=== PATIENT | female | born 1995 | race Caucasian/White ===

== ENCOUNTER 2019-03-09 10:16 | Emergency (ER) | payer BC ==
[~2019-03-09] VITALS: Ht 162.6 cm; Wt 46.3 kg
[2019-03-09] MEDS ORDERED: TDAP [DIPH/PERTUSSIS/TET] 0.5 ML VIAL IM ONE ×2 (11:00→11:10)
--- NOTE | 2019-03-09 11:00 | NUR ---
PT CAME INTO THE ED C/O L HAND LACERATION WHILE SLICING AN AVOCADO. PT AAOX4, VSS, BREATHING EVEN AND UNLABORED ON ROOM AIR W/ NAD NOTED. PT CONNECTED TO THE MONITOR AND POX.
--- NOTE | 2019-03-09 11:18 | NUR ---
XRAY AT BEDSIDE
[2019-03-09] MEDS ORDERED: LIDOCAINE /MPF 1% VIAL 5 ML VIAL ONE (11:26)
--- NOTE | 2019-03-09 12:20 | NUR ---
Patient discharged to home in stable condition. Written and verbal after care instructions given. Patient verbalizes understanding of instruction.
[2019-03-09 12:26] VITALS: BP 127/84
== END 2019-03-09 12:26 | disposition home or self-care (01) ==
LOC: ER 10:21
DX: S61.215A Laceration without foreign body of left ring finger without damage to nail, initial encounter (principal); W26.8XXA Contact with other sharp object(s), not elsewhere classified, initial encounter; Y93.89 Activity, other specified; Y92.89 Other specified places as the place of occurrence of the external cause; Y99.8 Other external cause status
CPT/HCPCS: 12001; 73130; 90471; 90715; 99283; A6403; J3490

== ENCOUNTER 2019-03-11 08:04 | Emergency (ER) | payer BC ==
[~2019-03-11] VITALS: Ht 162.6 cm; Wt 46.3 kg
[2019-03-11 08:13] VITALS: BP 106/72
--- NOTE | 2019-03-11 08:47 | NUR ---
Patient discharged to home in stable condition. Written and verbal after care instructions given. Patient verbalizes understanding of instruction.
== END 2019-03-11 08:47 | disposition home or self-care (01) ==
LOC: ER 08:09
DX: S61.215D Laceration without foreign body of left ring finger without damage to nail, subsequent encounter (principal); X58.XXXD Exposure to other specified factors, subsequent encounter

== ENCOUNTER 2019-03-17 11:31 | Emergency (ER) | payer BC ==
[~2019-03-17] VITALS: Ht 162.6 cm; Wt 45.4 kg
[2019-03-17 11:53] VITALS: BP 113/69
--- NOTE | 2019-03-17 12:21 | NUR ---
Patient discharged to home in stable condition. Written and verbal after care instructions given. Patient verbalizes understanding of instruction.
== END 2019-03-17 12:21 | disposition home or self-care (01) ==
LOC: ER 11:31
DX: S61.412D Laceration without foreign body of left hand, subsequent encounter (principal); X58.XXXD Exposure to other specified factors, subsequent encounter